=== PATIENT | male | born 1940 | race Caucasian/White ===

== ENCOUNTER 2019-01-29 15:41 | Inpatient (IN) | payer OTHER, MEDICAID ==
[~2019-01-29] VITALS: Ht 177.8 cm; Wt 62.1 kg
[~2019-01-29 15:41] MED LIST: ACET325C3 PO; ALBU0.63 NEB; DOCU-144 PO; HYDR-1189 PO; IPRA0.2S53 NEB; LACT10SO6 PO; LORA0.5T PO; OMEP20CA11 PO; ONDA4TAB11 SL; POTA10TA15 PO
[2019-01-29 15:43] VITALS: BP_SYST 102
--- NOTE | 2019-01-29 17:23 | NUR ---
Placed in room 06 . Placed on school bus monitor, blood pressure machine and pulse oximeter. To gown for exam. Side rails up. Report given to Cait NAVARRETE.
--- NOTE | 2019-01-29 17:40 | NUR ---
pt arrives [facility] w/ a productive cough x 2 weeks. Crackles auscultated over bul upper lobes. O2 is at 2l via NC
[2019-01-29 18:21] LABS: HEMATOCRIT 27.4 % (36-54); MEAN CORPUSCULAR HEMOGLOBIN 30 pg (27-31); MEAN CORPUSCULAR HGB CONC 33 % (32-36); MEAN CORPUSCULAR VOLUME 92 fL (79.0-98.0); PLATELET COUNT (AUTO) 360 K/uL (130-430); RED BLOOD CELL COUNT(AUTO) 2.98 MIL/uL (4.2-6.2); RED CELL DISTRIBUTION WIDTH 15.5 % (9.0-15.0); WHITE BLOOD COUNT (AUTO) 21.5 K/uL (4.8-10.8)
--- NOTE | 2019-01-29 18:30 | NUR ---
# 22 gauge angiocath placed to LAC. Use of asceptic technique. Opsite placed over site. Blood return noted. Blood for lab drawn from site. Flushed with 10 cc of normal saline. No evidence of infiltration noted. Patient tolerated well.
[2019-01-29 18:39] LABS: ALANINE AMINOTRANSFERASE 11 U/L (12-78); ALBUMIN 2.3 g/dL (3.4-4.8); ANION GAP 13 (5-15); ASPARTATE AMINOTRANSFERASE 28 U/L (10-37); CALCIUM 9.6 mg/dL (8.4-11.0); CHLORIDE 106 mmol/L (98-107); CREATININE 1.39 mg/dL (0.55-1.30); GLUCOSE 96 mg/dL (70-99); SODIUM SERUM 138 mmol/L (136-145); TOTAL BILIRUBIN 0.5 mg/dL (0.0-1.0); UREA NITROGEN, BLOOD 38 mg/dL (8-21)
--- NOTE | 2019-01-29 18:50 | NUR ---
UA obtained from straight cath and sent to the lab.
[2019-01-29 18:58] LABS: BAND % (MANUAL) 18 % (0-6); BASOPHILS % (MANUAL) 0 % (0-2); EOSINOPHILS % (MANUAL) 0 % (0-7); LYMPHOCYTES % (MANUAL) 2 % (20-46); MONOCYTES % (MANUAL) 8 % (0-11)
--- NOTE | 2019-01-29 19:10 | NUR ---
Report given to Timothy NAVARRETE.
[2019-01-29 19:25] LABS: BILIRUBIN,URINE NEGATIVE (NEGATIVE); BLOOD, URINE 1+ (NEGATIVE); CLARITY/URINE SL HAZY (CLEAR); COLOR,URINE YELLOW (YELLOW); GLUCOSE,URINE NEGATIVE (NEGATIVE); KETONES,URINE NEGATIVE (NEGATIVE); LEUKOCYTE ESTERASE ,URINE NEGATIVE (NEGATIVE); NITRITE, URINE NEGATIVE (NEGATIVE); PH,URINE 5.5 (5.0-8.0); PROTEIN URINE NEGATIVE (NEGATIVE); UROBILINOGEN,URINE 0.2 (0.2-1.0)
[2019-01-29] MEDS ORDERED: MOM PO (19:38)
[2019-01-29] MEDS ORDERED: MELA3TAB64 PO (19:38)
[2019-01-29] MEDS ORDERED: DOCU-144 PO (19:38)
--- NOTE | 2019-01-29 19:38 | NUR ---
Medication reconciliation completed with information provided by patient's chart from [facility]. Any prior medication reconciliation on file was reviewed and corrected.
[2019-01-29] MEDS ORDERED: NACL 0.9% 2,000 ML IV ONE (19:45)
[2019-01-29] MEDS ORDERED: LEVOFLOXACIN 500 MG/D5W 100 ML IV ONE (19:45)
[2019-01-29 20:07] LABS: BACTERIA,URINE FEW /HPF (None Seen); MUCUS,URINE None Seen /LPF (None Seen); URIC ACID CRYSTALS,URINE 0-10 /HPF (None Seen); WBC,URINE 0-3 /HPF (0-3)
--- NOTE | 2019-01-29 20:11 | NUR ---
Pt resting in bed no acute distress noted at this time. Pt has been advised of admission.
--- NOTE | 2019-01-29 20:11 | NUR ---
Patient will be admitted to care of Dr. Hernandez. Admitted to med surg unit. Will go to room 122B. Belongings list completed. Summary report printed. Report will be given at bedside.
--- NOTE | 2019-01-29 20:29 | NUR ---
Report given to Lesia Su for continuation of care.
--- NOTE | 2019-01-29 20:41 | NUR ---
ADMISSION NOTE Received patient from ER via eric, received report from LANDON FLEMING. Patient admitted with diagnosis of PNA. Patient oriented to hospital routine, call light, toileting and safety-patient verbalized understanding.
[2019-01-29] MEDS ORDERED: MILK OF MAGNESIA 30 ML UDC PO PRN (20:45)
[2019-01-29] MEDS ORDERED: ACETAMINOPHEN 325 MG TABLET PO PRN (20:45)
[2019-01-29] MEDS ORDERED: LevALBUTEROL HCL 1.25 MG/0.5 ML *CONC.* VIAL.NEB (XOPENEX CONC.) INH PRN (20:45)
[2019-01-29 20:53] VITALS: BP_SYST 127
--- NOTE | 2019-01-29 20:54 | NUR ---
CONSULTATION PAGED/CALLED Reason for Consultation: PNA Person Who was Notified: ROSE Consulting Physician: DR. SMITH Ordering Physician: DR. JULES
[2019-01-29] MEDS: MELATONIN 3 MG TABLET PO SCH (21:00)
[2019-01-29 21:09] VITALS: BP_SYST 91
[2019-01-29] MEDS ORDERED: KCL 20 mEq in D5/0.45NS 1000mL 1,000 ML IV ONE (21:26)
[2019-01-29] MEDS: ENOXAPARIN SODIUM 40 MG/0.4 ML SYRINGE SUBCUT SCH (21:57)
[2019-01-29] MEDS: MEGESTROL ACETATE 400 MG/10 ML UDC PO SCH (21:57)
[2019-01-29] MEDS: KCL 20 mEq in D5/0.45NS 1000mL 1,000 ML IV SCH (21:58)
--- NOTE | 2019-01-29 22:58 | NUR ---
Patient in bed resting with no complaints of pain or respiratory distress. Call light within reach and will monitor on rounds.
[2019-01-29] MEDS: LevALBUTEROL HCL 1.25 MG/0.5 ML *CONC.* VIAL.NEB (XOPENEX CONC.) INH SCH (23:39)
[2019-01-30 00:10] VITALS: BP_SYST 96
--- NOTE | 2019-01-30 02:17 | NUR ---
Patient resting in bed with no pain or respiratory distress. Call light within reach. Will cont to monitor on rounds.
--- NOTE | 2019-01-30 04:22 | NUR ---
No change in condition
--- NOTE | 2019-01-30 06:11 | NUR ---
CLosing Notes Patient in bed resting. No pain or respiratory distress. Repositioned q2h. IV intact clean and dry and infusing fluids. All needs have been met. Will endorse care to oncoming shift.
[2019-01-30] MEDS: LevALBUTEROL HCL 1.25 MG/0.5 ML *CONC.* VIAL.NEB (XOPENEX CONC.) INH SCH ×3 (07:09→23:15)
--- NOTE | 2019-01-30 07:30 | NUR ---
OPENING NOTE Patient resting in the bed. No acute distress. Respiration even and unlabored. On O2 2L/min via NC. Skin warm and dry to touch. IV intact to RAC, no redness, no swelling, no drainage. On KCL 20mEq in D5 1/2Ns at 75ml/hr, infusing well. Safety measure maintained. Call light within reached. Bed locked in low position, side rails up, bed alarm on. Will continue to monitor.
[2019-01-30 07:50] VITALS: BP_SYST 91
--- NOTE | 2019-01-30 08:10 | NUR ---
HELPED LAB TO HOLD THE PATIENT'S HANDS FRO BLOOD DRAWN.
[2019-01-30 08:36] LABS: BASOPHILS % (AUTO) 0.1 % (0.0-2.0); EOSINOPHILS % (AUTO) 0.2 % (0.0-4.0); HEMATOCRIT 23.7 % (36-54); HEMOGLOBIN 7.6 g/dL (14.0-18.0); LYMPHOCYTES # (AUTO) 1.6 K/uL (1.0-5.5); LYMPHOCYTES % (AUTO) 13.4 % (20.5-51.5); MEAN CORPUSCULAR HEMOGLOBIN 30 pg (27-31); MEAN CORPUSCULAR HGB CONC 32 % (32-36); MEAN CORPUSCULAR VOLUME 93 fL (79.0-98.0); MONOCYTES # (AUTO) 1.3 K/uL (0.0-1.0); MONOCYTES % (AUTO) 10.8 % (1.7-9.3); NEUTROPHILS # (AUTO) 9.2 K/uL (1.8-7.7); NEUTROPHILS % (AUTO) 75.5 % (40.0-70.0); PLATELET COUNT (AUTO) 292 K/uL (130-430); RED BLOOD CELL COUNT(AUTO) 2.54 MIL/uL (4.2-6.2); RED CELL DISTRIBUTION WIDTH 15.4 % (9.0-15.0)
[2019-01-30 08:40] LABS: WHITE BLOOD COUNT (AUTO) 12.2 K/uL (4.8-10.8)
[2019-01-30 08:50] LABS: ANION GAP 9 (5-15); CALCIUM 8.7 mg/dL (8.4-11.0); CHLORIDE 112 mmol/L (98-107); CREATININE 1.29 mg/dL (0.55-1.30); GLUCOSE 106 mg/dL (70-99); POTASSIUM 3.9 mmol/L (3.5-5.1); SODIUM SERUM 141 mmol/L (136-145); UREA NITROGEN, BLOOD 34 mg/dL (8-21)
[2019-01-30 08:56] LABS: TOTAL IRON BIND. CAPACITY 117 ug/dL (250-450)
[2019-01-30] MEDS: DOCUSATE SODIUM 100 MG CAPSULE PO SCH (09:51)
[2019-01-30] MEDS: MEGESTROL ACETATE 400 MG/10 ML UDC PO SCH ×2 (09:51→21:00)
--- NOTE | 2019-01-30 10:25 | NUR ---
ROUND Patient resting in the bed. No acute distress. Continue on O2 via NC. Iv intact, IVF infusing well. Safety measure maintained. Call light within reached. Bed locked in low position, side rails up, bed alarm on. Continue to monitor.
[2019-01-30] MEDS: KCL 20 mEq in D5/0.45NS 1000mL 1,000 ML IV SCH (11:02)
--- NOTE | 2019-01-30 11:55 | NUR ---
DCPA and Social Service contact: NETWORK OPERATIONS MANAGER met with Pt. at bed side for DC planning assessment. She was lethargic, confused initially cooperative then wanted to be left alone, not well oriented, Hx of Dementia. Pt. was residing at [facility], Pt stated he would like to return there upon discharge. Pt. has insurance through [employer], Medicare part A and B.Pt. utilizes a wheelchair and is not ambulating, and is dependent for his ADLs at this time. No SS inquiry or concern at this time. DCP/CM/SS will remain available as needed
--- NOTE | 2019-01-30 12:25 | NUR ---
ROUND Patient resting in the bed and watching TV. No acute distress. Continue on O2 2L/min via NC. IV intact, IVF infusing well. Safety measure maintained. Bed locked in low position, side rails up, bed alarm on. Call light within reached. Continue to monitor.
[2019-01-30 12:53] VITALS: BP_SYST 105
--- NOTE | 2019-01-30 14:38 | NUR ---
SEEN AND EXAMINED BY JALIL RICKETTS WITH ORDER RECEIVED.
[2019-01-30] MEDS: SOD FERRIC GLUC COMPLEX/SUC 125 MG in NS 100 ML IV SCH (15:18)
[2019-01-30 16:12] VITALS: BP_SYST 100
--- NOTE | 2019-01-30 16:12 | NUR ---
ROUND Patient resting in the bed. No acute distress. Respiration even and unlabored. Continue on O2 via NC. IV intact, IVF infusing well. Safety measure maintained. Call light within reached. Bed locked in low position, side rails up, bed alarm on. Continue to monitor.
--- NOTE | 2019-01-30 18:38 | NUR ---
CLOSING NOTE Patient resting in the bed. No acute distress. Respiration even and unlabored. On O2 2L/min via NC. Skin warm and dry to touch. IV intact to RAC, no redness, no swelling, no drainage. On KCL 20mEq in D5 1/2Ns at 75ml/hr, infusing well. All needs met. Safety measure maintained. Call light within reached. Bed locked in low position, side rails up, bed alarm on. Will endorse to nurse nurse.
--- NOTE | 2019-01-30 19:40 | NUR ---
Opening Notes Patient resting in bed. AAOx1 to name only otherwise does not want to speak. IV site leaking and dressing changed/reinforced with no s/s of infiltration. Cont IV fluid infusion. On 2L NC and tolerating well. oriented the patient to the room and use of the call light. Bed locked in low position with bed alarm active. Will monitor on rounds.
[2019-01-30 20:00] VITALS: BP_SYST 96
[2019-01-30] MEDS: ENOXAPARIN SODIUM 40 MG/0.4 ML SYRINGE SUBCUT SCH ×2 (21:00→21:20)
[2019-01-30] MEDS: MELATONIN 3 MG TABLET PO SCH (21:00)
--- NOTE | 2019-01-30 21:35 | NUR ---
Dr Hernandez paged. Received call back with Orders for 2 Units PRBC's to be infused for 01/31/19 @ [address] order for CBC in the AM.
--- NOTE | 2019-01-30 22:30 | NUR ---
Patient refusing PO medication and Lovenox injection. Patient becoming agitated and verbally abusive. Want to be left alone. IV antibiotics administered. Will cont to monitor.
[2019-01-31] MEDS: KCL 20 mEq in D5/0.45NS 1000mL 1,000 ML IV SCH ×3 (00:53→23:02)
--- NOTE | 2019-01-31 01:15 | NUR ---
Patient in bed resting. Able to access bed controls on his own. Wants his light off and to be left alone.
[2019-01-31 02:26] VITALS: BP_SYST 91
--- NOTE | 2019-01-31 04:31 | NUR ---
Patient resting in bed 35 deg. no appearance of pain or respiratory distress.
--- NOTE | 2019-01-31 06:37 | NUR ---
Closing Notes Patient in bed resting comfortably. No pain or respiratory distress. Call light within reach. All needs have been met and safety precautions in place. Will endorse care to oncoming shift.
[2019-01-31] MEDS: LevALBUTEROL HCL 1.25 MG/0.5 ML *CONC.* VIAL.NEB (XOPENEX CONC.) INH SCH ×3 (07:12→23:56)
--- NOTE | 2019-01-31 07:30 | NUR ---
OPENING NOTE Patient resting in the bed. No acute distress. On O2 2L/min via NC. Skin warm and dry to touch. IV intact to RAC, no redness, no swelling, no drainage. On KCL 20mEq in D5 1/2Ns at 75ml/hr, infusing well. Safety measure maintained. Call light within reached. Bed locked in low position, side rails up, bed alarm on. Will continue to monitor.
[2019-01-31 07:55] VITALS: BP_SYST 101
[2019-01-31 08:09] LABS: BASOPHILS % (AUTO) 0.4 % (0.0-2.0); EOSINOPHILS # (AUTO) 0.1 K/uL (0.0-0.4); EOSINOPHILS % (AUTO) 1.3 % (0.0-4.0); HEMATOCRIT 22.5 % (36-54); HEMOGLOBIN 7.4 g/dL (14.0-18.0); LYMPHOCYTES # (AUTO) 0.7 K/uL (1.0-5.5); LYMPHOCYTES % (AUTO) 13.4 % (20.5-51.5); MEAN CORPUSCULAR HEMOGLOBIN 30 pg (27-31); MEAN CORPUSCULAR HGB CONC 33 % (32-36); MEAN CORPUSCULAR VOLUME 92 fL (79.0-98.0); MONOCYTES # (AUTO) 1.1 K/uL (0.0-1.0); MONOCYTES % (AUTO) 22.3 % (1.7-9.3); NEUTROPHILS # (AUTO) 3.1 K/uL (1.8-7.7); NEUTROPHILS % (AUTO) 62.6 % (40.0-70.0); PLATELET COUNT (AUTO) 293 K/uL (130-430); RED BLOOD CELL COUNT(AUTO) 2.45 MIL/uL (4.2-6.2); RED CELL DISTRIBUTION WIDTH 15.4 % (9.0-15.0)
[2019-01-31 09:04] LABS: WHITE BLOOD COUNT (AUTO) 4.9 K/uL (4.8-10.8)
--- NOTE | 2019-01-31 09:35 | NUR ---
SISTER VISIT AND STAY WITH PATIENT AT BEDSIDE.
[2019-01-31] MEDS: DOCUSATE SODIUM 100 MG CAPSULE PO SCH (10:05)
[2019-01-31] MEDS: MEGESTROL ACETATE 400 MG/10 ML UDC PO SCH ×2 (10:05→21:00)
--- NOTE | 2019-01-31 10:15 | NUR ---
IV RE-INSERTION: Complaining of IV site leaking to right AC. Restarted on LEFT FOREARM . Successful after 2 attempts g.20 . Resumed current IVF , Will observe for any signs of infiltration.
--- NOTE | 2019-01-31 10:20 | NUR ---
BT INITIATION:H/H 7.4/22.3 Consent signed per agreeing to administration of blood. Blood has been type and crossmatched. Blood sent from blood bank. Information on unit of blood checked against patient wristband at bedside by two nurses. All information matches. Patient or responsible constitution party informed of potential complications associated with blood transfusion. Informed of possible transfusion reaction symptoms. Aware of need to notify nurse at once of itching, shortness of breath, flushing, feeling of impending doom, or other symptoms not previously present. Vital signs taken within 5 minutes prior to initiation of transfusion. RN will remain with patient for first 15 minutes of transfusion at which time vital signs will be re-assessed.
--- NOTE | 2019-01-31 10:27 | NUR ---
Nutrition Update Param Scale 13 noted. Pt admitted for pneumonia. Diet: regular, Ensure High Protein TID BMI: 25.5 kg/m2 RD to follow per nutrition care standards.
[2019-01-31 10:38] LABS: INR 1.1 (0.80-1.20); PROTHROMBIN TIME 11.5 SECS (9.5-12.5)
--- NOTE | 2019-01-31 10:40 | NUR ---
15 MIN AFTER BLOOD TRANSFUSION STARTED Patient resting in the bed with eyes closed. No skin rash noted. IV intact, blood infusing well. Sister at bedside. Safety measure maintained. Call light within reached. Bed in low position, side rails up, bed alarm on. Continue to monitor.
--- NOTE | 2019-01-31 13:10 | NUR ---
FIRST UNIT OF BLOOD TRANSFUSION COMPLETED. Patient resting in the bed. No acute distress. No c/o itching, no skin rash noted. Skin warm and dry to touch. Safety measure maintained. Call light within reached. Bed locked in low position, side rails up, bed alarm on. Sister at bedside. Will start second unit of blood.
--- NOTE | 2019-01-31 13:25 | NUR ---
SECOND UNIT OF BLOOD TRANSFUSION STARTED Vital signs taken within 15 minutes prior to initiation of transfusion. RN will remain with patient for first 15 minutes of transfusion at which time vital signs will be re-assessed. Sister at bedside. Safety measure maintained. Call light within reached. Continue to monitor.
[2019-01-31 16:31] VITALS: BP_SYST 108
--- NOTE | 2019-01-31 16:40 | NUR ---
SECOND UNIT OF BLOOD TRANSFUSION COMPLETED Patient vital sign stable. No s/s of fluid overload. No skin rash noted. Safety measure maintained. Call light within reached. Bed locked in low position, side rails up, bed alarm on. Continue to monitor.
--- NOTE | 2019-01-31 17:03 | NUR ---
Dietitian Recommendations * Recommend regular diet w/ Ensure Enlive TID -- Ensure High Protein not available (ONS provides 1050 kcal/day, 60 gm protein/day) * Encourage increase PO intakes LP, RD Please refer to Nutrition Assessment for details. Addendum: 01/31/19 at [address] Amended: Links added.
--- NOTE | 2019-01-31 17:05 | NUR ---
SEEN AND EXAMINED BY JALIL RICKETTS.
[2019-01-31] MEDS: SOD FERRIC GLUC COMPLEX/SUC 125 MG in NS 100 ML IV SCH (18:12)
--- NOTE | 2019-01-31 19:00 | NUR ---
CLOSING NOTE Patient resting in the bed. No acute distress. Respiration even and unlabored. On O2 2L/min via NC. Skin warm and dry to touch. IV intact to LFA, no redness, no swelling, no drainage. On KCL 20mEq in D5 1/2Ns at 75ml/hr, infusing well. All needs met. Safety measure maintained. Call light within reached. Bed locked in low position, side rails up, bed alarm on. Will endorse to nurse nurse.
[2019-01-31] MEDS: MELATONIN 3 MG TABLET PO SCH (21:00)
[2019-01-31] MEDS: ENOXAPARIN SODIUM 40 MG/0.4 ML SYRINGE SUBCUT SCH (21:00)
[2019-02-01 00:08] VITALS: BP_SYST 107
[2019-02-01] MEDS: LevALBUTEROL HCL 1.25 MG/0.5 ML *CONC.* VIAL.NEB (XOPENEX CONC.) INH SCH ×3 (07:29→23:13)
[2019-02-01 08:00] VITALS: BP_SYST 103
--- NOTE | 2019-02-01 08:07 | NUR ---
INITIAL NOTE BEDSIDE REPORT RECEIVED BY WIRE COINER RN. PT RESTING IN BED. NO ACUTE DISTRESS NOTED. BREATHING EVEN AND UNLABORED. PT ON 2L NC. TOLERATING WELL. CALL LIGHT WITHIN REACH, BED IN LOW AND LOCKED POSITION WITH BED ALARM ON.
[2019-02-01] MEDS: DOCUSATE SODIUM 100 MG CAPSULE PO SCH (09:00)
[2019-02-01] MEDS: MEGESTROL ACETATE 400 MG/10 ML UDC PO SCH ×2 (09:00→21:00)
--- NOTE | 2019-02-01 10:00 | NUR ---
RN ROUND PT RESTING, NO ACUTE DISTRESS NOTED, PT ON 2.5L NC, TOLERATING WELL, BREATHING EVEN AND UNLABORED.
[2019-02-01 12:13] VITALS: BP_SYST 113
--- NOTE | 2019-02-01 12:15 | NUR ---
RN ROUNDS PT REFUSING FOOD INTAKE. ASSISTED PT WITH DRINKING WATER. WILL REATTEMPT TO ENCOURAGE TO EAT FOOD LATER.
--- NOTE | 2019-02-01 13:50 | NUR ---
MD ROUNDS DR. JULES AT BEDSIDE. INFORMED MD THAT PT REFUSING ORAL INTAKE AND BLOOD DRAWS. MD TO CONTINUE CURRENT TREATMENT.
[2019-02-01] MEDS: KCL 20 mEq in D5/0.45NS 1000mL 1,000 ML IV SCH (13:59)
[2019-02-01] MEDS: SOD FERRIC GLUC COMPLEX/SUC 125 MG in NS 100 ML IV SCH (13:59)
--- NOTE | 2019-02-01 15:50 | NUR ---
RN ROUNDS PT RESTING, BREATHING EVEN AND UNLABORED, NO ACUTE DISTRESS NOTED.
[2019-02-01 16:04] VITALS: BP_SYST 103
[2019-02-01 16:27] VITALS: BP_SYST 103
[2019-02-01] MEDS: metroNIDAZOLE 250 mg/NS 50 ML IV SCH ×2 (16:29→23:44)
--- NOTE | 2019-02-01 18:00 | NUR ---
RN ROUNDS PT RESTING, NO ACUTE DISTRESS NOTED, PT ON 2.5L NC, TOLERATING WELL, BREATHING EVEN AND UNLABORED.
--- NOTE | 2019-02-01 20:10 | NUR ---
RN ROUND REPOSITIONED PATIENT FOR COMFORT. OFFERED ORAL INTAKE, PT ACCEPTED.
[2019-02-01 20:21] VITALS: BP_SYST 114
[2019-02-01] MEDS: MELATONIN 3 MG TABLET PO SCH (21:00)
[2019-02-01] MEDS: ENOXAPARIN SODIUM 40 MG/0.4 ML SYRINGE SUBCUT SCH (21:00)
--- NOTE | 2019-02-01 23:30 | NUR ---
Opening note Received report. Received patient awake, no sign of distress. Administered due antibiotic and patient cooperative. Antibiotic infusing well. Bed is locked in lowest position, side rails up and he is holding onto call light.
--- NOTE | 2019-02-01 23:43 | NUR ---
RN ROUNDS BEDSIDE SBAR REPORT GIVEN TO AVIATION TACTICAL READINESS OFFICER RN. PT RESTING IN BED. NO ACUTE DISTRESS NOTED. BREATHING EVEN AND UNLABORED. PT ON 2.5L NC. TOLERATING WELL. CALL LIGHT WITHIN REACH, BED IN LOW AND LOCKED POSITION WITH BED ALARM ON. PT CARE ENDORSED TO AVIATION TACTICAL READINESS OFFICER RN. Addendum: 02/01/19 at 2344 by Kaye Katz RN CLOSING NOTE
[2019-02-02 02:48] VITALS: BP_SYST 110
[2019-02-02] MEDS: metroNIDAZOLE 250 mg/NS 50 ML IV SCH ×2 (05:45→13:51)
[2019-02-02] MEDS: KCL 20 mEq in D5/0.45NS 1000mL 1,000 ML IV SCH (05:45)
--- NOTE | 2019-02-02 05:51 | NUR ---
IVF, Antibiotic Hung new bag of IVF fluids and infusing as ordered. Administered antibiotic as ordered, infusing well patient tolerating. He requested a drink of water and it was provided. He wants the curtain closed and has no further needs.
[2019-02-02] MEDS: LevALBUTEROL HCL 1.25 MG/0.5 ML *CONC.* VIAL.NEB (XOPENEX CONC.) INH SCH ×2 (07:06→16:54)
--- NOTE | 2019-02-02 07:20 | NUR ---
closing note Patient resting in comfortable position, IVF infusing well. Safety precautions maintained. Endorsed report to LANDON Faria
--- NOTE | 2019-02-02 08:00 | NUR ---
RN INITIAL NOTES RECEIVED PATIENT IN BED ALERT BUT IRRITATED PATIENT SAID LEAVE ME ALONE , RESP EVEN AND UNLABORED PATIENT NO COMPLAIN OF PAIN REFUSED BREAKFAST AND JUST A FEW SIPS OF MILF , REFUSED LABS WILL TRY AGAIN LATER
[2019-02-02] MEDS: DOCUSATE SODIUM 100 MG CAPSULE PO SCH (08:27)
[2019-02-02 08:30] VITALS: BP_SYST 94
[2019-02-02] MEDS: MEGESTROL ACETATE 400 MG/10 ML UDC PO SCH (08:30)
--- NOTE | 2019-02-02 09:00 | NUR ---
REFUSAL OF FLU VACCINE PATIENT REFUSED FLU VACCINE
--- NOTE | 2019-02-02 10:00 | NUR ---
ROUNDS STILL SLEEPING NO DISTRESS, NO FACIAL GRIMACE NOTES
--- NOTE | 2019-02-02 12:08 | NUR ---
ROUNDS OFFERED FLUIDS AND TOOK A FEW SIPS
[2019-02-02 12:47] VITALS: BP_SYST 112
--- NOTE | 2019-02-02 14:00 | NUR ---
DR JULES PATIENT SEEN BY DR RAMESH INFORMED PATIENT CONDITION STILL WITH WHEEZING CONT WITH BREATHING TREATMENT AND WITH ORDER TO DC BACK TO [facility] AND CONT WITH IRON X 5 DAYS MORE , AWAITING FOR THE STRIKE WARFARE/MISSILE SYSTEMS OFFICER TO FOLLOW UP WITH THE DISCHARGE
[2019-02-02 14:25] VITALS: BP_SYST 112
--- NOTE | 2019-02-02 15:22 | NUR ---
Discharge Planning: DCP faxed pt referral to [facility] (f [phone] p [phone]) DCP called [facility] pt will go back to [facility] [place] ([phone]) 5:00pm P/U. Patient packet taken to nurse.
--- NOTE | 2019-02-02 15:36 | NUR ---
CALLED [facility] FOR REPORT CALLED [facility] FOR REPORT MALE RECEPTIONEST SAID LANDON WILL CALL ME BACK SHE IS STILL INSERTING IV Addendum: 02/02/19 at 1648 by Giana Khan RN LANDON FROM [facility] REPORT GIVEN TO LANDON
[2019-02-02] MEDS: FLU VACC TS2019(65UP)/MF59C/PF 45 MCG/0.5 ML SYRINGE I.M. PRN ×2 (15:57→16:06)
--- NOTE | 2019-02-02 16:00 | NUR ---
RICH RAMSAY MADE AWARE PATIENT SISTER DEVENDRA MADE AWARE OF THE PATIENT GOING BACK TO [facility] AWARE THAT PATIENT STILL IS A POOR EATER AND STATED HE DON'T WANT TO EAT MUCH PATIENT LIKES TO DRINK SMALL AMOUNT OF FLUID ONLY WHEN HE WANTS TO, PATIENT IV HL TO KEEP SO PATIENT NEEDS IRON FOR 5 DAYS MORE , WILL CALL KYLIE OLMEDO FOR REPORT
[2019-02-02 16:08] VITALS: BP_SYST 116
[2019-02-02] MEDS: SOD FERRIC GLUC COMPLEX/SUC 125 MG in NS 100 ML IV SCH (16:12)
--- NOTE | 2019-02-02 18:19 | NUR ---
D/C Patient Patient given medication reconciliation form and D/C instructions. Exit Care provided. Patient verbalized understanding. MD discussed with patient the results and treatment provided.Report given to Sharlene Helm and IV hl keep for Iron infusion x 5 days more . Patient in stable condition but still with wheezing , per Md to cont with breathing Tx as ordered, ID band removed. IV catheter was not removed, intact and dressing applied, no active bleeding. medication rec done by Md. Patient educated on pain management. All belongings sent with patient.
== END 2019-02-02 18:09 | DRG 871 ==
LOC: SED 15:41 → SMU 19:45
PROVIDERS: ADMIT Family Medicine; ATTEND Family Medicine
PROC: 30233N1 Transfusion of Nonautologous Red Blood Cells into Peripheral Vein, Percutaneous Approach (ICD-10-PCS; principal; 2019-01-31)
DX: A41.9 Sepsis, unspecified organism (principal); J15.6 Pneumonia due to other Gram-negative bacteria; E43 Unspecified severe protein-calorie malnutrition; J69.0 Pneumonitis due to inhalation of food and vomit; N17.9 Acute kidney failure, unspecified; Z68.1 Body mass index [BMI] 19.9 or less, adult; E86.0 Dehydration; D50.9 Iron deficiency anemia, unspecified; F03.90 Unspecified dementia, unspecified severity, without behavioral disturbance, psychotic disturbance, mood disturbance, and anxiety; Z66 Do not resuscitate; Z51.5 Encounter for palliative care; Z86.73 Personal history of transient ischemic attack (TIA), and cerebral infarction without residual deficits; Z88.0 Allergy status to penicillin; Z79.899 Other long term (current) drug therapy
CPT/HCPCS: 36415; 71045; 80048; 80053; 81000-TC; 82728; 83540-TC; 83550-TC; 83605; 83735-TC; 85007; 85025; 85027; 85610-TC; 85730-TC; 86710; 86886; 86900; 86901; 86920; 87040-TC; 87081; 87086; 93005; 94640; 94760; 96365; 99285; J1650; J1956; J2916; J3490; J7050; J7612; P9021